=== PATIENT | female | born 1975 | race Caucasian/White ===

== ENCOUNTER 2021-01-11 07:20 | Day surgery (SDC) | payer OTHER ==
[~2021-01-11 07:20] MED LIST: EFFEXOR XR150 MG PO; XANAX1 MG PO
== END 2021-01-11 21:55 | disposition home or self-care (01) ==
LOC: CIR.AMB 07:20 → SURH 14:07 → CIR.AMB 21:55
PROVIDERS: ATTEND Specialist
DX: N72 Inflammatory disease of cervix uteri (principal)